=== PATIENT | female | born 1995 | race Caucasian/White ===

== ENCOUNTER 2017-01-29 18:31 | Emergency (ER) | payer OTHER ==
[2017-01-29 20:00] LABS: BILIRUBIN NEGATIVE (NEGATIVE); BLOOD 3+ Ery/uL (NEGATIVE); CLARITY HAZY (CLEAR); COLOR STRAW (YELLOW); GLUCOSE (U) NORMAL (NORMAL); KETONE (U) NEGATIVE (NEGATIVE); LEUKOCYTES NEGATIVE Leu/uL (NEGATIVE); NITRITE NEGATIVE (NEGATIVE); PROTEIN TRACE (LOW) mg/dL (NEGATIVE)
[2017-01-29 20:06] LABS: URINARY RBC 20-50
== END 2017-01-29 21:14 | disposition home or self-care (01) ==
LOC: FER 18:31
PROVIDERS: Emergency Medicine Emergency Medical Services
DX: A64 Unspecified sexually transmitted disease (principal); F32.9 Major depressive disorder, single episode, unspecified; F41.9 Anxiety disorder, unspecified; E03.9 Hypothyroidism, unspecified; Z79.899 Other long term (current) drug therapy; Z20.2 Contact with and (suspected) exposure to infections with a predominantly sexual mode of transmission
CPT/HCPCS: 81001

== ENCOUNTER 2021-05-19 10:40 | Emergency (ER) | payer OTHER ==
[2021-05-19 12:17] LABS: BILIRUBIN NEGATIVE (NEGATIVE); BLOOD NEGATIVE Ery/uL (NEGATIVE); CLARITY CLEAR (CLEAR); COLOR YELLOW (YELLOW); GLUCOSE (U) NORMAL (NORMAL); LEUKOCYTES NEGATIVE Leu/uL (NEGATIVE); NITRITE NEGATIVE (NEGATIVE); PROTEIN NEGATIVE (NEGATIVE); UROBILINOGEN 0.2 mg/dL (0.2-1.0); pH 6.5 (5.0-9.0)
[2021-05-19 12:17] LABS: BASOPHIL 0.7 % (0-2); HCT 38.3 % (37.0-47.0); HGB 12.7 g/dl (12.5-16.0); LYMPHOCYTE 18.3 % (15-48); MCH 29.4 pg (25.0-31.0); MCHC 33.2 g/dL (32.0-36.0); MCV 88.7 fL (78.0-100.0); MONOCYTE 6.5 % (0-12); MPV 9.2 fL (6.0-9.5); NEUTROPHIL 73.4 % (41-80); NRBC 0; PLT 218 K/uL (150-400); RBC 4.32 M/uL (4.20-5.40); RDW 12.5 % (11.5-14.0); WBC 6.8 K/uL (4.0-10.5)
[2021-05-19 13:04] LABS: ALBUMIN 3.6 g/dL (3.4-5.0); BILIRUBIN - TOTAL 0.3 mg/dL (0.2-1.0); BUN/CREAT RATIO (CALC) 15.8 RATIO; CREATININE 0.76 mg/dL (0.51-0.95); GLOBULIN (CALCULATION) 3.5 g/dL; TOTAL PROTEIN 7.1 g/dL (6.4-8.2)
== END 2021-05-19 13:30 | disposition home or self-care (01) ==
LOC: FER 10:40
PROVIDERS: Emergency Medicine
DX: F41.1 Generalized anxiety disorder (principal); F17.200 Nicotine dependence, unspecified, uncomplicated
CPT/HCPCS: 36415; 80053; 81003; 84443; 85025; 99284